=== PATIENT | male | born 1960 | race Caucasian/White ===

== ENCOUNTER 2020-01-24 15:49 | Emergency (ER) | payer BC ==
[2020-01-24 16:34] LABS: CHLORIDE,CL 97 mmol/L (98-107); SODIUM,NA 136 mmol/L (136-145)
[2020-01-24 16:36] LABS: ANION GAP 20.2 mmol/L (10-20)
[2020-01-24] MEDS ORDERED: EPINEPHrine 1:10,000 1 MG/10 ML Syringe IVPUSH STA (17:47)
[2020-01-24] MEDS ORDERED: Sodium Bicarbonate 8.4% 50 MEQ/50 ML Syringe IVPUSH ONE (17:50)
[2020-01-24] MEDS ORDERED: EPINEPHrine 1:10,000 1 MG/10 ML Syringe IVPUSH ONE ×4 (17:55→17:58)
--- NOTE | 2020-01-24 18:12 | EDM.PDOC ---
ED HPI GENERAL MEDICAL PROBLEM - General Chief Complaint: CPR in Progress Stated Complaint: code blue Time Seen by Provider: 01/24/20 15:49 Source of Information: Reports: EMS, EMS Notes Reviewed, Family History Limitations: Reports: Altered Mental Status - History of Present Illness INITIAL COMMENTS - FREE TEXT/NARRATIVE: Patient comes into the emergency department by EMS in a sudden cardiac arrest. EMS was contacted at [id number] stating that a man was unresponsive and CPR had just been initiated. Spouse states that the patient had just got done lifting some heavy objects into the back of the trailer further from [place] here getting some products that they purchased. He went and entered the vehicle and she stated that he looked fairly dusky and was short of breath. She asked if he was okay he said he just needed a minute to catch his breath. She states he does not have a history of shortness of breath especially how short of breath he appeared.Spouse states that within about 5 to 6 seconds he states that something is really wrong and at that point he became unresponsive. She contacted 911 immediately and was instructed how to do CPR bystanders did help until the ambulance arrived on scene within a few minutes. Patient was transported to the emergency department for the evaluation. EMS states the patient had remained in asystole/PEA with no rhythm return. Upon arrival to the emergency department patient was being [id number] and had an IO insertion in the right lower extremity. states that the patient was Covid positive on O ctober 2019 and had no complications or difficulties post Covid-19 his symptoms were fairly minor/mild. Patient spouse said that he had not been complaining of any chest pain, shortness of breath, difficulty breathing, fever, cough, dizziness, lightheadedness, abdominal pain, numbness, tingling, change in alertness, genitourinary concerns, or peripheral edema. She states has been relatively healthy. Patient does have a significant past cardiac history and the spouse states She felt he has been brought on borrowed time since then. He had a significant myocardial work-up approximately 7 years ago that involved 7 different stents. At that time frame they had stated that the patient should not have survived and he was able to overcome those obstacles and had been doing fairly well. Onset: Sudden Duration: Other Location: Reports: Other Quality: Reports: Other Severity: Severe Improves with: Reports: None Worsens with: Reports: None Treatments EVENTS DIRECTOR: Reports: CPR, IV/IO, See EMS Report ED ROS GENERAL - Review of Systems Review Of Systems: Unable To Obtain Reason Not Obtained: code blue ED EXAM, GENERAL - Physical Exam Exam: See Below Exam Limited By: Other (code blue) Eye Exam: Bilateral Eye: PERRL (dilated and fixed upon arrival and at time of ) Throat/Mouth: Other (large amount of pink/bloody frothy sputum noted in airway ) Head: Atraumatic, Normocephalic Neck: Normal Inspection, Supple Respiratory/Chest: Other Cardiovascular: Other (cardiac arrest. PEA upon arrival assessment ) Peripheral Pulses: 4+: Carotid (L) (with CPR only ), Femoral (L) (with CPR only ) GI/Abdominal: Soft, No Organomegaly, No Distention, Pelvis Stable (Male) Exam: Deferred Rectal (Males) Exam: Deferred Extremities: Pallor Neurological: Unresponsive Psychiatric: Other Skin Exam: Other Course - Orders/Labs/Meds Labs: Laboratory Tests 01/24/20 01/24/20 01/24/20 Range/Units 15:56 15:56 15:56 WBC 11.9 H (4.0-10.0) x10^3/uL RBC 3.97 L (4.5-6.0) x10^6/uL Hgb 12.2 L (14.0-18.0) g/dL Hct 38.9 L (40.0-52.0) % MCV 98.0 H (78.0-93.0) fL MCH 30.7 (26.0-32.0) pg MCHC 31.4 L (32.0-36.0) g/dL RDW Coeff of Darvin 17.7 H (10.0-15.0) % Plt Count 211 (130-400) x10^3/uL Add Manual Diff Yes Neutrophils % (Manual) 62 (50-80) % Band Neutrophils % 2 (0-6) % Lymphocytes % (Manual) 26 (25-50) % Monocytes % (Manual) 7 (2-11) % Eosinophils % (Manual) 3 (0-4) % Platelet Estimate Adequate Anisocytosis 1+ slight H PT 11.6 (9.5-12.3) SEC INR 1.1 L (2.0-3.5) APTT 31.0 (25.6-32.8) SEC D-Dimer, Quantitative 1.14 H (<=0.58) mg/LFEU Sodium 136 (136-145) mmol/L Potassium 4.2 (3.5-5.1) mmol/L Chloride 97 L (98-107) mmol/L Carbon Dioxide 23 (21-32) mmol/L Anion Gap 20.2 H (10-20) mmol/L BUN 26 H (7-18) mg/dL Creatinine 1.8 H (0.70-1.30) mg/dL Est Cr Clr Drug Dosing TNP Estimated GFR (MDRD) 39 Glucose 289 H (74-106) mg/dL POC Glucose (74-106) mg/dL Calcium 9.2 (8.5-10.1) mg/dL POC Troponin I (0.00-0.08) ng/mL NT-Pro-B Natriuret Pep 3560 H (<=125) pg/mL 01/24/20 01/24/20 Range/Units 15:59 16:00 WBC (4.0-10.0) x10^3/uL RBC (4.5-6.0) x10^6/uL Hgb (14.0-18.0) g/dL Hct (40.0-52.0) % MCV (78.0-93.0) fL MCH (26.0-32.0) pg MCHC (32.0-36.0) g/dL RDW Coeff of Darvin (10.0-15.0) % Plt Count (130-400) x10^3/uL Add Manual Diff Neutrophils % (Manual) (50-80) % Band Neutrophils % (0-6) % Lymphocytes % (Manual) (25-50) % Monocytes % (Manual) (2-11) % Eosinophils % (Manual) (0-4) % Platelet Estimate Anisocytosis PT (9.5-12.3) SEC INR (2.0-3.5) APTT (25.6-32.8) SEC D-Dimer, Quantitative (<=0.58) mg/LFEU Sodium (136-145) mmol/L Potassium (3.5-5.1) mmol/L Chloride (98-107) mmol/L Carbon Dioxide (21-32) mmol/L Anion Gap (10-20) mmol/L BUN (7-18) mg/dL Creatinine (0.70-1.30) mg/dL Est Cr Clr Drug Dosing Estimated GFR (MDRD) Glucose (74-106) mg/dL POC Glucose 261 H (74-106) mg/dL Calcium (8.5-10.1) mg/dL POC Troponin I 0.06 (0.00-0.08) ng/mL NT-Pro-B Natriuret Pep (<=125) pg/mL Meds: Medications Discontinued Medications Generic Name Dose Route Start Last Admin Trade Name Freq PRN Reason Stop Dose Admin Epinephrine HCl 1 mg 01/24/20 17:47 01/24/20 15:50 Epinephrine 1:10,000 IVPUSH 01/24/20 17:48 1 mg ONETIME STA Administration Epinephrine HCl 1 mg 01/24/20 17:55 01/24/20 15:51 Epinephrine 1:10,000 IVPUSH 01/24/20 17:56 1 mg ONETIME ONE Administration Epinephrine HCl 1 mg 01/24/20 17:56 01/24/20 15:56 Epinephrine 1:10,000 IVPUSH 01/24/20 17:57 1 mg ONETIME ONE Administration Epinephrine HCl 1 mg 01/24/20 17:57 01/24/20 16:01 Epinephrine 1:10,000 IVPUSH 01/24/20 17:58 1 mg ONETIME ONE Administration Epinephrine HCl 1 mg 01/24/20 17:58 01/24/20 16:06 Epinephrine 1:10,000 IVPUSH 01/24/20 17:59 1 mg ONETIME ONE Administration Sodium Bicarbonate 50 meq 01/24/20 17:50 01/24/20 16:00 Sodium Bicarbonate 8.4% IVPUSH 01/24/20 17:51 50 meq ONETIME ONE Administration Departure - Departure Time of Disposition: 16:11 Disposition: 20 Preliminary Cause of *Q: Cardiac Arrest Condition: Undetermined Clinical Impression: Cardiac arrest, Flash pulmonary edema - Discharge Information *PRESCRIPTION DRUG MONITORING PROGRAM REVIEWED*: Not Applicable *COPY OF PRESCRIPTION DRUG MONITORING REPORT IN PATIENT AMINAH: Not Applicable Referrals: PCP,Not In Area [Primary Care Provider] - Forms: ED Department Discharge - Assessment/Plan Assessment:: 1. cardiac arrest 2. Flash pulmonary edema Plan: Upon arrival to the emergency department intubation was completed with a 7.5 Kyr[place]z ET tube with visualization of the vocal cords with the use of the glide scope no complications noted. Multiple oral secretions had to be extricated prior to visualization of the vocal cords. Large frothy amount of blood-tinged sputum was noted throughout the entire process. Patient did appear to have purpling discoloration from the nipples up. Intubation was successfully completed without any complications. Breath sounds were heard equal bilaterally with no epigastric sounds. End-tidal CO2 was not detectable due to the large amount of secretions in the oral adjunct. Chest rise and fall was also noted without difficulty. ACLS protocol was maintained throughout the entire code. Please see code sheet for medication administration and times. was not at the Bedside initially she was contacted to return back to the emergency department. Upon arrival to emergency department the stated She was satisfied with the care that was provided and would like us to stop to the code. The code was ended at 1611. Family does not wish to have this patient complete an autopsy. Per the description and nature of the incident medical insurance clerk is not warranted for further investigation regarding time of or circumstances regarding the time of . Time of is 1611 Cause of is acute pulmonary flash edema secondary to congestive heart failure, coronary artery disease, and diabetes.
== END 2020-01-24 16:11 | disposition expired ==
LOC: VM.ED 15:49
DX: I46.9 Cardiac arrest, cause unspecified (principal); J81.1 Chronic pulmonary edema
CPT/HCPCS: 31500; 36415; 80048; 82962; 83880; 84484; 85025; 85379; 85610; 85730; 96374; 99285; J0171